=== PATIENT | female | born 1955 | race Caucasian/White ===

== ENCOUNTER 2018-02-18 10:03 | Emergency (ER) | payer BC ==
[2018-02-18 11:05] LABS: #Eosinphils 0.1 thou/uL (0.0-0.7); #Lymphocytes 1.7 thou/uL (1.20-3.40); #Monocytes 0.5 thou/uL (0.11-0.59); #Neutrophils 6.1 thou/uL (1.40-6.50); %Basophils 0.5 % (0.0-1.0); %Eosinophils 1.6 % (0.0-10.0); %Monocytes 6.2 % (0.0-10.0); %Neutrophils 71.7 % (42.0-75.0); Hemoglobin 12.8 g/dL (12.0-16.0); Mean Corpuscular HGB CONC 33.7 g/dL (32.0-36.0); Mean Corpuscular Hemoglobin 29.5 pg (27.0-31.0); Mean Corpuscular Volume 87.5 fL (78.0-98.0); Mean Platelet Volume 7.2 fL (7.4-10.4); Platelet Count 207 thou/uL (130-400); RBC Distribution Width 11.7 % (11.5-14.5); Red Blood Cell (RBC) Count 4.34 mill/uL (4.20-5.40); White Blood Cell (WBC) Count 8.6 thou/uL (4.8-10.8)
[2018-02-18] MEDS ORDERED: Ondansetron ODT 4 MG TAB ONE (11:06)
[2018-02-18 11:24] LABS: ALT (SGPT) 20 U/L (8-55); AST (SGOT) 21 U/L (5-34); Albumin 4.3 g/dL (3.4-4.8); Alkaline Phosphatase 69 U/L (40-150); Anion Gap 14 mmol/L (10-20); BUN (Urea Nitrogen) 14 mg/dL (9.8-20.1); Bilirubin, Total 0.3 mg/dL (0.2-1.2); CK (CPK) 65 U/L (29-168); Calc. Creatinine Clearance 0 mL/min (70-130); Calcium 8.8 mg/dL (7.8-10.44); Carbon Dioxide 20 mmol/L (23-31); Chloride 106 mmol/L (98-107); Estimated GFR-MDRD 69; Globulin 2.5 g/dL (2.4-3.5); Glucose 97 mg/dL (80-115); Lipase 26 U/L (8-78); Potassium 3.6 mmol/L (3.5-5.1); Protein, Total 6.8 g/dL (6.0-8.3); Sodium 136 mmol/L (136-145)
--- NOTE | 2018-02-18 11:33 | RAD ---
KUB: COMPARISON: None. HISTORY: Left lower quadrant pain that began acutely this morning. FINDINGS: A single view of the abdomen shows a nonspecific, nonobstructed bowel gas pattern. There appear to b e cholecystectomy clips in the right upper quadrant of the abdomen. Air is seen at the level of the rectum. No suspicious calcifications are present. IMPRESSION: Nonobstructive bowel gas pattern. POS: [facility]
[2018-02-18 11:53] LABS: Bilirubin Negative (Negative); Blood, Urine Large (Negative); Clarity CLOUDY (Clear); Glucose, Urine (Dipstick) Negative (Negative); Leukocyte Negative (Negative); Nitrite Negative (Negative); Protein, Urine (Dipstick) Negative (Neg-Trace); Specific Gravity, Urine 1.008 (1.002-1.036); Urobilinogen 0.2 mg/dL (0.2-1.0)
[2018-02-18 11:55] LABS: Bacteria/HPF None Seen HPF (None Seen); Hyaline Casts/LPF 0-3 HYALINE CAST LPF (0-3 Hyaline); Pathc Cast-AUWi Flag 0.14 (0-2.49); RBC/HPF 21-50 HPF (0-3); Squamous Epithelial None Seen HPF (0-3); WBC/HPF 0-3 HPF (0-3)
--- NOTE | 2018-02-18 12:23 | CT ---
CT ABDOMEN AND PELVIS WITH CONTRAST: COMPARISON: None. HISTORY: Left lower quadrant abdominal pain that began this morning. TECHNIQUE: Multiple contiguous axial images were obtained in a CT of the abdomen and pelvis with contrast. Tiffanie nal reformats were performed. FINDINGS: The patient is status post cholecystectomy and hysterectomy. The liver, adrenal glands, spleen, and pancreas are unremarkable. Subcentimeter hypodensities in the bilateral kidneys likely represent cys ts. No free air, free fluid, or stranding changes are seen in the abdomen and pelvis. The large and smal l bowel are unremarkable. The appendix is not definitely seen. No abdominal or pelvic lymphadenopat hy are present. Postsurgical changes are seen in the lumbar spine. The visualized inferior thorax and abdominal wall soft tissues are unremarkable. IMPRESSION: No evidence of acute intraabdominal/pelvic abnormality. POS: [id number]
[2018-02-18] MEDS ORDERED: ISOVUE-370 76%-LOCM 1 ML ONE (12:27)
[2018-02-18] MEDS ORDERED: Fleet Enema 133 ML BOT PR SCH (12:30)
[2018-02-18] MEDS ORDERED: Bisacodyl 10 MG SUPP PR SCH (12:30)
== END 2018-02-18 16:31 | disposition home or self-care (01) ==
LOC: ERS 10:03
DX: K59.00 Constipation, unspecified (principal); E78.5 Hyperlipidemia, unspecified; E03.9 Hypothyroidism, unspecified; Z79.899 Other long term (current) drug therapy
CPT/HCPCS: 36415; 74018; 74177; 80053; 81003; 81015; 82550; 83690; 85025; 87086; 93005; 96360; 96361; J2270; Q0162

== ENCOUNTER 2023-06-23 11:59 | Outpatient (CLI) | payer MEDICARE, OTHER | END 2023-06-23 12:00 | disposition home or self-care (01) | LOC: BICMAMMO 11:59 | PROVIDERS: ATTEND Family Medicine | DX: Z12.31 Encounter for screening mammogram for malignant neoplasm of breast (principal) | CPT/HCPCS: 77063; 77067 ==

== ENCOUNTER 2024-07-23 13:20 | Outpatient (CLI) | payer MEDICARE, OTHER | END 2024-07-23 13:21 | disposition home or self-care (01) | LOC: BICMAMMO 13:20 | PROVIDERS: ATTEND Family Medicine | DX: Z12.31 Encounter for screening mammogram for malignant neoplasm of breast (principal); Z78.0 Asymptomatic menopausal state; M85.89 Other specified disorders of bone density and structure, multiple sites | CPT/HCPCS: 77063; 77067; 77080 ==

== ENCOUNTER 2024-09-20 21:21 | Emergency (ER) | payer MEDICARE, OTHER ==
[2024-09-20] MEDS ORDERED: Fluorescein Opthalmic Strip ONE (23:57)
[2024-09-21] MEDS ORDERED: Proparacaine 0.5% Opth 15 ML BOT ONE (00:15)
[2024-09-21] MEDS ORDERED: Fluorescein Opthalmic Strip ONE (00:42)
[2024-09-21] MEDS ORDERED: Acetaminophen 500 MG TAB ONE (01:35)
== END 2024-09-21 01:43 | disposition home or self-care (01) ==
LOC: ERS 21:21
DX: B02.9 Zoster without complications (principal)
CPT/HCPCS: 99282